=== PATIENT | male | born 1985 | race Caucasian/White ===

== ENCOUNTER 2016-10-20 20:47 | Emergency (ER) | payer BC, SELFPAY ==
[~2016-10-20] VITALS: Ht 175.3 cm; Wt 108.9 kg
[~2016-10-20 20:47] MED LIST: OCUFLOX5 ML OP
[2016-10-20] MEDS ORDERED: NKM (20:57)
[2016-10-20 21:11] VITALS: BP 124/87
[2016-10-20] MEDS ORDERED: PredniSONE 20mg tab ONE (21:18)
[2016-10-20] MEDS ORDERED: PREDNISONE20 MG ORAL (21:21)
[2016-10-20] MEDS ORDERED: CLARITIN10 MG ORAL (21:21)
--- NOTE | 2016-10-20 21:22 | Emergency Room Report ---
History of Present Illness General Chief Complaint: Skin Rash/Abscess Source: Patient Present Illness HPI Is a 31-year-old male with no past history. He presents with chief complaint of itching. Onset for about a month now. He thinks is related to the new [employer] printing press that he has in his house. Worse when he scratch. Worsen expose area. His been taking Benadryl with good relief. Denies any fever chills denies any nausea vomiting. No tongue edema. Allergies: Coded Allergies: SULFA (SULFONAMIDE ANTIBIOTICS) (Unverified Allergy, Unknown, 04/05/14) Patient History Past Medical History: see triage record, old chart reviewed Past Surgical History: none Pertinent Family History: none Social History: Denies: smoking Immunizations: other Reviewed Nursing Documentation: PMH: Agreed, PSxH: Agreed Nursing Documentation-PMH Hx Cardiac Problems: Yes - HIGH CHOLESTEROL Review of Systems Eye: Denies: blurred vision, eye pain ENT: Denies: ear pain, nose congestion, throat swelling Respiratory: Denies: cough, shortness of breath Cardiovascular: Denies: chest pain, palpitations Gastrointestinal: Denies: abdominal pain, diarrhea, nausea, vomiting Musculoskeletal: Denies: back pain, joint pain Skin: Denies: rash Neurological: Denies: headache, numbness Endocrine: Denies: increased thirst, increased urine Hematologic/Lymphatic: Denies: easy bruising All Other Systems: negative except mentioned in HPI Physical Exam Vital Signs Date Time Temp Pulse Resp B/P Pulse Ox O2 Delivery O2 Flow Rate FiO2 10/20/16 20:51 98.2 97 16 124/87 95 Room Air vitals normal Sp02 EP Interpretation: reviewed, normal General Appearance: well appearing, no apparent distress, alert Head: normocephalic, atraumatic Eyes: bilateral eye EOMI, bilateral eye PERRL ENT: hearing grossly normal, normal pharynx Neck: full range of motion, supple, no meningismus Respiratory: chest non-tender, lungs clear, normal breath sounds Cardiovascular #1: regular rate, rhythm, no murmur Gastrointestinal: normal bowel sounds, non tender, no mass, no organomegaly, no bruit, non-distended Musculoskeletal: back normal, gait/station normal, normal range of motion Psychiatric: mood/affect normal Skin: warm/dry Medical Decision Making Diagnostic Impression: Primary Impression: Allergic reaction Qualified Codes: T78.40XA - Allergy, unspecified, initial encounter ER Course Patient presents with allergic reaction. No evidence of anaphylaxis. Told patient to remove the printing press and see if symptom resolved. We'll discharge home. Last Vital Signs Date Time Temp Pulse Resp B/P Pulse Ox O2 Delivery O2 Flow Rate FiO2 10/20/16 21:11 98.2 16 124/87 95 Room Air 10/20/16 20:51 97 Status: improved Disposition: HOME, SELF-CARE Condition: Stable Scripts Loratadine (CLARITIN) 10 Mg Tablet 10 MG ORAL DAILY, #30 TAB Prov: TOMEKA GARCIA M.D. 10/20/16 Prednisone* (PREDNISONE*) 20 Mg Tablet 60 MG ORAL DAILY, #12 TAB Prov: TOMEKA GARCIA M.D. 10/20/16 Additional Instructions: Followup with your DrSophie in 7 days. Return if symptom worsen. TOMEKA GARCIA M.D. Oct 20, 2016 21:22
[2016-10-20 21:27] VITALS: BP 124/87
[2016-10-20] MEDS ORDERED: PredniSONE 20mg tab ORAL ONE (21:30)
== END 2016-10-20 21:45 | disposition home or self-care (01) ==
LOC: EMR 21:32
DX: T78.40XA Allergy, unspecified, initial encounter (principal); X58.XXXA Exposure to other specified factors, initial encounter; E78.00 Pure hypercholesterolemia, unspecified; L29.9 Pruritus, unspecified; Z88.2 Allergy status to sulfonamides
CPT/HCPCS: 99284

== ENCOUNTER 2019-02-14 17:30 | Emergency (ER) | payer BC ==
[~2019-02-14] VITALS: Ht 175.3 cm; Wt 113.4 kg
[~2019-02-14 17:30] MED LIST changes: +CLARITIN10 MG ORAL; +NKM; +PREDNISONE20 MG ORAL
--- NOTE | 2019-02-14 18:19 | Emergency Room Report ---
History of Present Illness General Chief Complaint: Sore Throat Source: Medical Record Present Illness HPI 33 YO male presents to the ED c/o 06/16 in severity small pimple like bump on the left side of the roof of his mouth. Pt. denies fevers or chills. Denies recent travel or ill contacts. Pt. denies swelling, tenderness or recent dental work. Pt. reports he did have a sore a few days ago on the outer lower lip. no other lesions elsewhere. Denies cough, swollen tender lymph nodes, WARREN, or neck pain/stiffness. Allergies: Coded Allergies: SULFA (SULFONAMIDE ANTIBIOTICS) (Unverified Allergy, Unknown, 04/05/14) Patient History Past Medical History: see triage record Past Surgical History: none Pertinent Family History: none Reviewed Nursing Documentation: PMH: Agreed; PSxH: Agreed Nursing Documentation-PMH Hx Cardiac Problems: Yes - HIGH CHOLESTEROL Review of Systems All Other Systems: negative except mentioned in HPI Physical Exam Vital Signs Date Time Temp Pulse Resp B/P (MAP) Pulse Ox O2 Delivery O2 Flow Rate FiO2 02/14/19 17:40 98.6 98 18 116/85 (95) 99 Room Air Sp02 EP Interpretation: reviewed, normal General Appearance: no apparent distress, alert, GCS 15, non-toxic Head: normocephalic, atraumatic Eyes: bilateral eye normal inspection, bilateral eye PERRL ENT: hearing grossly normal, normal pharynx, normal voice, other - no nobvious oral lesions, no soft tissue fullness, uvula is midline, no tonsillar swelling or exudates. Neck: full range of motion, no meningismus Respiratory: lungs clear, normal breath sounds, speaking full sentences Cardiovascular #1: regular rate, rhythm Musculoskeletal: gait/station normal, normal range of motion, non-tender Neurologic: alert, oriented x3, responsive, motor strength/tone normal, sensory intact, speech normal, grossly normal Psychiatric: judgement/insight normal Skin: no rash Lymphatic: no adenopathy Medical Decision Making PA Attestation Dr. Aguirre is my supervising Physician whom patient management has been discussed with. Diagnostic Impression: Primary Impression: Oral soft tissue complaint Additional Impression: Encounter for medical screening examination ER Course 33 YO male presents to the ED c/o 06/16 in severity small pimple like bump on the left side of the roof of his mouth. Pt. denies fevers or chills. Denies recent travel or ill contacts. Pt. denies swelling, tenderness or recent dental work. Pt. reports he did have a sore a few days ago on the outer lower lip. no other lesions elsewhere. Denies cough, swollen tender lymph nodes, WARREN, or neck pain/stiffness. Ddx considered but are not limited to: pharyngitis, strep, [employer], ludwigs angina, URI , viral ulcer, gum abscess just to name a few. Vital signs: are WNL, pt. is afebrile H&PE are most consistent with: normal MSE, no evidence of acute infection or abscess. ORDERS: None required at this time as the diagnosis is clinical ED INTERVENTIONS: none required at this time. DISCHARGE: At this time pt. is stable for d/c to home. Will provide printed patient care instructions, and any necessary prescriptions. Care plan and follow up instructions have been discussed with the patient prior to discharge. Last Vital Signs Date Time Temp Pulse Resp B/P (MAP) Pulse Ox O2 Delivery O2 Flow Rate FiO2 02/14/19 17:40 98.6 98 18 116/85 (95) 99 Room Air Disposition: HOME, SELF-CARE Condition: Stable Patient Instructions: Medical Screening Exam Additional Instructions: Take any previously prescribed medications as directed. Follow up with a Primary Care Provider in 3-5 days, even if your symptoms have resolved. Return sooner to ED if new symptoms occur, or current symptoms become worse. - Please note that this Emergency Department Report was dictated using [employer] technician technology software, occasionally this can lead to erroneous entry secondary to interpretation by the dictation equipment. Yaneth Newell Feb 14, 2019 18:19
[2019-02-14 18:25] VITALS: BP 116/85
--- NOTE | 2019-02-14 18:26 | NUR ---
ED Nurse Note: FIRST CONACT WITH PT. PT SITTING IN CHAIR DUE TO SORE THROAT X FEW DAYS. NAD NOTED.
--- NOTE | 2019-02-14 18:39 | NUR ---
ED Nurse Note: DC INSTRUCTION GIVEN TO PT. PT REQUESTED TO BE SEEN BY ERMD FOR MORE CLARIFICATION. JEANA MADE AWARE.
--- NOTE | 2019-02-14 19:11 | NUR ---
HAND-OFF: Report given to TIMMY ELLIS. NAD NOTED.
--- NOTE | 2019-02-14 19:30 | NUR ---
ED Nurse Note: As per report from patient and RN patient has questions he would like to address with the MD pre discharge.
--- NOTE | 2019-02-14 20:00 | NUR ---
ER DISCHARGE NOTE: Patient is cleared to be discharged per ERMD, pt is aox4, on room air, with stable vital signs. pt was given dc instructions, pt was able to verbalize understanding, pt id band removed without complications. pt is able to ambulate with steady gait. pt took all belongings.
== END 2019-02-14 20:00 | disposition home or self-care (01) ==
LOC: EMR 18:16
DX: K13.70 Unspecified lesions of oral mucosa (principal); E78.00 Pure hypercholesterolemia, unspecified; Z88.2 Allergy status to sulfonamides
CPT/HCPCS: 99281